=== PATIENT | female | born 1980 | race Caucasian/White ===

== ENCOUNTER 2025-07-01 08:50 | Outpatient (CLI) | payer OTHER, SELFPAY ==
--- NOTE | ~2025-07-01 | US_ITS ---
US abdomen limited Indication: elevated liver enzymes Comparison: None Technique: [place]-scale and color Doppler images were obtained. Findings: LIVER: Mild increased echogenicity in the liver. There are solid-appearing liver lesions the largest right lobe liver 3.2 x 3.2 cm. . GALLBLADDER/BILIARY: Unremarkable.No cholelithiais, wall thickening or pericholecystic fluid. No biliary dilatation. CBD 6 mm. [place] sign negative. PANCREAS: Unremarkable. Right Kidney: The right kidney was not imaged. Impression: Multiple solid appearing liver lesion concerning for metastatic disease. Contrast-enhanced MRI is recommended Reviewed, dictated and finalized at location [facility]. [facility] [employer] Impression: Multiple solid appearing liver lesion concerning for metastatic disease. Contra st-enhanced MRI is recommended
== END 2025-07-01 08:51 | disposition home or self-care (01) ==
PROVIDERS: PCP Family Medicine; Visit Provider Family Medicine
DX: K76.9 Liver disease, unspecified (principal); I47.9 Paroxysmal tachycardia, unspecified; R74.8 Abnormal levels of other serum enzymes
CPT/HCPCS: 76705